=== PATIENT | male | born 1990 | race Caucasian/White ===

== ENCOUNTER 2018-10-06 05:23 | Emergency (ER) | payer OTHER ==
[2018-10-06 05:40] VITALS: BP 153/89; PULSE 60; RESP 18; TEMP 98.6
[2018-10-06] MEDS ORDERED: BUPIVACAINE (PF) 0.75% 30 ML VIAL SQ STA (06:07)
[2018-10-06] MEDS ORDERED: CLINDAMYCIN 150 MG CAP PO STA (06:07)
[2018-10-06] MEDS ORDERED: LIDOCAINE 1% INJ 10MG/ML (20 ML MDV) SQ ONE (06:07)
--- NOTE | 2018-10-06 06:30 | ED ---
ENT HPI - General Chief complaint: Dental/Oral Stated complaint: Dental pain Time Seen by Provider: 10/06/18 05:42 Source: patient Mode of arrival: ambulatory Limitations: no limitations - History of Present Illness Initial comments: [place] is a 28-year-old male presents the emergency department today with complaint of right-sided dental pain. Patient has a history of multiple dental caries and has had dental abscess in the past, he reports he's been in his usual state of health until he woke up this morning with right-sided dental pain worse in the upper teeth though he feels it radiates throughout the entire right side of his face. Patient denies any recent illness any recent nasal congestion or rhinorrhea. He does have a known broken tooth in this region which he reports he has seen a dentist for but was unable to have it extracted at that time. - Related Data Previous Rx's Medication Instructions Recorded Clindamycin [Cleocin] 450 mg PO Q6H 7 Days #28 capsule 10/06/18 Allergies Allergy/AdvReac Type Severity Reaction Status Date / Time Penicillins Allergy Rash/Hives Verified 10/06/18 05:40 amoxicillin AdvReac Unknown Verified 10/06/18 05:40 Childhood erythromycin base AdvReac Unknown Verified 10/06/18 05:40 Childhood Review of Systems ROS Statement: Those systems with pertinent positive or pertinent negative responses have been documented in the HPI. ROS Other: All systems not noted in ROS Statement are negative. Past Medical History Past Medical History: No Reported History History of Any Multi-Drug Resistant Organisms: None Reported Past Surgical History: No Surgical Hx Reported Past Psychological History: No Psychological Hx Reported Smoking Status: Current every day smoker Past Alcohol Use History: Rare Past Drug Use History: None Reported General Exam - General Exam Comments Initial Comments: Physical Exam GENERAL: Patient is well-developed and well-nourished. Patient is nontoxic and well- hydrated and is in no distress. HENT: Normocephalic, Atraumatic. TMs normal bilaterally Poor dentition with multiple dental caries and broken teeth, erythema of the gums in the peritonsillar space of the upper and lower molars EYES: PERRL, EOMI PULMONARY: Unlabored respirations. No audible rales rhonchi or wheezing was noted. CARDIOVASCULAR: There is a regular rate and rhythm without any murmurs gallops or rubs. ABDOMEN: Soft and nontender with normal bowel sounds. SKIN: Skin is clear with no lesions or rashes and otherwise unremarkable. : Deferred NEUROLOGIC: Patient is alert and oriented x3. Moving all extremities spontaneously MUSCULOSKELETAL: Normal extremities with adequate strength and full range of motion. No lower extremity swelling or edema. No calf tenderness. PSYCHIATRIC: Normal psychiatric evaluation. Limitations: no limitations Limitations: no limitations Course Vital Signs 10/06/18 05:37 Temperature 98.6 F Pulse Rate 60 Respiratory 18 Rate Blood Pressure 153/89 O2 Sat by Pulse 98 Oximetry Procedures - Nerve Block Consent Obtained: verbal consent Time Out Performed: Yes Local Anesthetic Used: Lidocaine 1% Side: right Nerve Blocks: other Intraoral Nerve Block: inferior alveolar Complications: none Patient Tolerated Procedure: well Medical Decision Making - Medical Decision Making Patient was seen and evaluated history is obtained from patient history and physical exam are consistent with dental infection Patient repeatedly asking for something to help with the discomfort from the dental infection, risks and benefits of a dental block were discussed with the patient, patient has received a dental block in the past and understands the risks of paralysis, neuropraxia and infection, would like to go forth with a dental block First dose clindamycin given in the emergency department Leser pallatine nerve block performed The patient reported resolution of his dental pain after block Patient was advised to contact dentist today and advised him of his dental infection and need for follow-up. Return parameters were discussed with patient questions pertaining to care were answered patient was discharged home in stable condition. Disposition Clinical Impression: Dental caries, Dental abscess, Toothache Disposition: HOME SELF-CARE Instructions: Dental Abscess (ED), Toothache (ED) Prescriptions: Clindamycin [Cleocin] 450 mg PO Q6H 7 Days #28 capsule Is patient prescribed a controlled substance at d/c from ED?: No Referrals: Cale Huang MD [Primary Care Provider] - 1-2 days Isauro Hampton DDS [STAFF PHYSICIAN] - 1-2 days Brandy Edward DDS [STAFF PHYSICIAN] - 1-2 days Virgie Mauro DDS [STAFF PHYSICIAN] - 1-2 days Time of Disposition: 06:31
== END 2018-10-06 06:34 | disposition home or self-care (01) ==
LOC: EC 05:23
DX: K02.9 Dental caries, unspecified (principal); K04.7 Periapical abscess without sinus; F17.200 Nicotine dependence, unspecified, uncomplicated; Z88.0 Allergy status to penicillin; Z88.1 Allergy status to other antibiotic agents
CPT/HCPCS: 99282; 64400; J2001

== ENCOUNTER 2019-11-05 13:23 | Emergency (ER) | payer OTHER ==
[2019-11-05 13:33] VITALS: BP 130/76; PULSE 94; RESP 18; TEMP 97.8
--- NOTE | 2019-11-05 13:57 | ED ---
Skin/Abscess/FB HPI - General Chief complaint: Skin/Abscess/Foreign Body Stated complaint: painful rash Time Seen by Provider: 11/05/19 13:39 Source: patient Mode of arrival: ambulatory Limitations: no limitations - History of Present Illness Initial comments: Patient is a 29-year-old male presenting to the emergency department with a chief complain of a skin rash. Patient states she noticed a small rash on the left side of his abdomen which started about 4 days ago and has gradually increased in severity. Patient reports initially it appeared to be a small abrasion and gradually developed vesicles and erythema but no drainage. Patient states initially was itchy but now it is painful. Patient states it follow the dermatomal pattern. Patient did have chickenpox as a child. Patient does report taking [id number] analgesics with some improvement in symptoms. - Related Data Previous Rx's Medication Instructions Recorded Clindamycin [Cleocin] 450 mg PO Q6H 7 Days #28 capsule 10/06/18 valACYclovir HCL [Valtrex] 1,000 mg PO Q8HR #30 tab 11/05/19 Allergies Allergy/AdvReac Type Severity Reaction Status Date / Time Penicillins Allergy Rash/Hives Verified 11/05/19 13:29 amoxicillin AdvReac Unknown Verified 11/05/19 13:29 Childhood erythromycin base AdvReac Unknown Verified 11/05/19 13:29 Childhood Review of Systems ROS Statement: Those systems with pertinent positive or pertinent negative responses have been documented in the HPI. ROS Other: All systems not noted in ROS Statement are negative. Past Medical History Past Medical History: No Reported History History of Any Multi-Drug Resistant Organisms: None Reported Past Surgical History: No Surgical Hx Reported Past Psychological History: No Psychological Hx Reported Smoking Status: Current every day smoker Past Alcohol Use History: Rare Past Drug Use History: Marijuana General Exam Limitations: no limitations General appearance: alert, in no apparent distress Head exam: Present: atraumatic, normocephalic, normal inspection Eye exam: Present: normal appearance Pupils: Present: normal accommodation ENT exam: Present: normal exam, mucous membranes moist Neck exam: Present: normal inspection, full ROM Respiratory exam: Present: normal lung sounds bilaterally Cardiovascular Exam: Present: regular rate, normal rhythm, normal heart sounds GI/Abdominal exam: Present: soft, normal bowel sounds, other (Vesicular rash on an erythematous base on the left side of the abdomen. No drainage noted.) Extremities exam: Present: normal inspection, full ROM Back exam: Present: normal inspection, full ROM Neurological exam: Present: alert, oriented X3 Psychiatric exam: Present: normal affect, normal mood Skin exam: Present: warm, dry, intact, normal color Course Vital Signs 11/05/19 13:30 Temperature 97.8 F Pulse Rate 94 Respiratory 18 Rate Blood Pressure 130/76 O2 Sat by Pulse 98 Oximetry Medical Decision Making - Medical Decision Making patient is a 29-year-old male presenting to emergency Department with a chief complaint of a skin rash. On exam patient does have a vesicular rash on an erythematous base on the left side of the abdomen follows a dermatomal pattern. Rash is painful. I suspect this is shingles. Patient advised that he is contagious until the vesicles beginning to form scales. Patient started on Valtrex. Patient is not immune compromise. Strict return parameters were thoroughly discussed with patient was understanding and agreeable. Case discussed with physician. Disposition Clinical Impression: Shingles Disposition: HOME SELF-CARE Condition: Stable Instructions (If sedation given, give patient instructions): Shingles (ED) Additional Instructions: Please follow up with primary care. Take prescribed medication as directed. Please return to emergency department if symptoms worsen. Prescriptions: valACYclovir HCL [Valtrex] 1,000 mg PO Q8HR #30 tab Is patient prescribed a controlled substance at d/c from ED?: No Referrals: None,Stated [Primary Care Provider] - 1-2 days Time of Disposition: 14:12
== END 2019-11-05 14:20 | disposition home or self-care (01) ==
LOC: EC 13:23
DX: B02.9 Zoster without complications (principal); F17.200 Nicotine dependence, unspecified, uncomplicated; Z88.0 Allergy status to penicillin; Z88.1 Allergy status to other antibiotic agents
CPT/HCPCS: 99282

== ENCOUNTER 2021-06-29 09:51 | Emergency (ER) | payer OTHER ==
[2021-06-29 10:06] VITALS: RESP 18; TEMP 98.2
[2021-06-29] MEDS ORDERED: KETOROLAC 15 MG/ML 1 ML VIAL IM STA (10:29)
[2021-06-29] MEDS ORDERED: DIAZEPAM 5 MG/ML 2 ML INJ IM STA (10:42)
--- NOTE | 2021-06-29 10:45 | XR ---
EXAMINATION TYPE: XR cervical spine comp DATE OF EXAM: 06/29/2021 TECHNIQUE: Frontal, lateral, oblique, swimmers, and open mouth view of the cervical spine are obtaine d. HISTORY: Cervical strain injury with pain COMPARISON: None FINDINGS: The cervical spine is visualized in its entirety from C1 thru the top of T1 level, it is s atisfactory in alignment without evidence of acute fracture or dislocation. The pre-vertebral soft t issue appears within normal limits. The C1-C2 articulation is within normal limits on the open mouth view. Vertebral body heights and disc space heights are maintained. The oblique images are within n ormal limits. Overlying clothing or blanket material is present IMPRESSION: No acute fracture or dislocation is seen in the cervical spine.
--- NOTE | 2021-06-29 10:48 | ED ---
General Adult HPI - General Chief complaint: Extremity Problem,Nontraumatic Stated complaint: neck/shoulder pain Time Seen by Provider: 06/29/21 10:07 Source: patient Mode of arrival: ambulatory Limitations: no limitations - History of Present Illness Initial comments: 31-year-old male presents to emergency Department with a chief complaint of right neck and shoulder pain. Patient reports he woke up this morning and began to experience symptoms. He reports most of the pain is located on the right side of his neck and is exacerbated with left and right rotation, lateral flexion. He reports the pain is going onto the trapezius into his right shoulder. States he has full range of motion shoulder but it hurts to move it. Reports it is quite tender to the touch. Denies any erythematous or ecchymotic changes or any trauma to the region. Denies taking medication to the symptoms. This report occasional paresthesias going to the right arm. - Related Data Previous Rx's Medication Instructions Recorded Clindamycin [Cleocin] 450 mg PO Q6H 7 Days #28 capsule 10/06/18 valACYclovir HCL [Valtrex] 1,000 mg PO Q8HR #30 tab 11/05/19 Cyclobenzaprine [Flexeril] 5 mg PO TID PRN #15 tablet 06/29/21 Allergies Allergy/AdvReac Type Severity Reaction Status Date / Time Penicillins Allergy Rash/Hives Verified 06/29/21 10:06 amoxicillin AdvReac Unknown Verified 06/29/21 10:06 Childhood erythromycin base AdvReac Unknown Verified 06/29/21 10:06 Childhood Review of Systems ROS Statement: Those systems with pertinent positive or pertinent negative responses have been documented in the HPI. ROS Other: All systems not noted in ROS Statement are negative. Past Medical History Past Medical History: No Reported History History of Any Multi-Drug Resistant Organisms: None Reported Past Surgical History: No Surgical Hx Reported Past Psychological History: No Psychological Hx Reported Smoking Status: Current every day smoker Past Alcohol Use History: Rare Past Drug Use History: Marijuana General Exam Limitations: no limitations General appearance: alert, in no apparent distress Head exam: Present: atraumatic, normocephalic, normal inspection Eye exam: Present: normal appearance, PERRL, EOMI Pupils: Present: normal accommodation ENT exam: Present: normal exam, normal oropharynx, mucous membranes moist Neck exam: Present: normal inspection, tenderness (Tenderness over the right paraspinal region of the cervical spine.). Absent: full ROM (Limited range of motion with left and right rotation. No crepitus.) Respiratory exam: Present: normal lung sounds bilaterally. Absent: respiratory distress, wheezes, rales, rhonchi, stridor, chest wall tenderness Cardiovascular Exam: Present: regular rate, normal rhythm, normal heart sounds. Absent: systolic murmur Extremities exam: Present: normal inspection, full ROM, tenderness (Tenderness over the right sided cervical spine and trapezius going to the shoulder.), norm al capillary refill, other (Palpable peripheral pulses in bilateral upper extremities.). Absent: pedal edema, joint swelling, calf tenderness Back exam: Present: normal inspection, full ROM Neurological exam: Present: alert, oriented X3 Psychiatric exam: Present: normal affect, normal mood Skin exam: Present: warm, dry, intact, normal color Course Vital Signs 06/29/21 06/29/21 06/29/21 10:03 11:06 11:23 Temperature 98.2 F 98.2 F Pulse Rate 68 65 65 Respiratory 18 18 18 Rate Blood Pressure 139/90 131/91 131/91 O2 Sat by Pulse 98 98 98 Oximetry Medical Decision Making - Medical Decision Making 31-year-old male presents to emergency Department with a chief complaint of right neck and shoulder pain. On Physical examination, tenderness over the right paraspinal region of the cervical spine along the trapezius as well. He does have some tenderness over the right deltoid. He has full range of motion in the right shoulder otherwise. Neurovascularly intact in the right upper extremity. Cervical spine x-ray shows no acute findings. Patient was given Toradol and Valium to prevent any spasms of the cervical muscles. On reevaluation, he reports improvement in symptoms. I advised him to alternate between Tylenol and Motrin. Return parameters were thoroughly discussed with patient who is understanding and agreeable Disposition Clinical Impression: Cervical strain, acute Disposition: HOME SELF-CARE Condition: Stable Instructions (If sedation given, give patient instructions): Cervical Strain (DC) Additional Instructions: Take prescribed medication as directed. Alternate between Tylenol and Motrin for pain control. Return to emergency department if symptoms worsen. Prescriptions: Cyclobenzaprine [Flexeril] 5 mg PO TID PRN #15 tablet PRN Reason: Muscle Spasm Is patient prescribed a controlled substance at d/c from ED?: No Referrals: Julien Fink MD [Primary Care Provider] - 1-2 days Time of Disposition: 10:48
[2021-06-29 11:20] VITALS: BP 131/91; PULSE 65
== END 2021-06-29 11:23 | disposition home or self-care (01) ==
LOC: EC 09:51
DX: S16.1XXA Strain of muscle, fascia and tendon at neck level, initial encounter (principal); F17.200 Nicotine dependence, unspecified, uncomplicated; F12.90 Cannabis use, unspecified, uncomplicated; Z88.0 Allergy status to penicillin; Z88.1 Allergy status to other antibiotic agents; X58.XXXA Exposure to other specified factors, initial encounter
CPT/HCPCS: 99283; 96372 ×2; 72050; J3360; J1885

== ENCOUNTER 2022-11-19 05:29 | Emergency (ER) | payer OTHER ==
[2022-11-19 05:33] VITALS: BP 148/99; PULSE 81; RESP 16; TEMP 97.9
[2022-11-19] MEDS ORDERED: KETOROLAC 15 MG/ML 1 ML VIAL IM STA (06:29)
--- NOTE | 2022-11-19 06:35 | ED ---
ENT HPI - General Chief complaint: Dental/Oral Stated complaint: infected tooth Time Seen by Provider: 11/19/22 06:02 Source: patient, RN notes reviewed, old records reviewed Mode of arrival: ambulatory Limitations: no limitations - History of Present Illness Initial comments: 32-year-old male presents with right upper dental pain since yesterday. Does have an appointment with a dentist to address dental caries of left upper next month. Denies any fevers. He is a daily smoker. MD complaint: tooth pain -: days(s) (1) Location: tooth # (2-3) Severity scale (1-10): 8 Quality: aching, constant Consistency: constant Improves with: none Context- Dental: history of dental caries, poor dental care Associated Symptoms: toothache - Related Data Previous Rx's Medication Instructions Recorded valACYclovir HCL [Valtrex] 1,000 mg PO Q8HR #30 tab 11/05/19 Cyclobenzaprine [Flexeril] 5 mg PO TID PRN #15 tablet 06/29/21 Clindamycin [Cleocin] 450 mg PO Q6H 7 Days #28 capsule 11/19/22 Allergies Allergy/AdvReac Type Severity Reaction Status Date / Time Penicillins Allergy Rash/Hives Verified 11/19/22 05:30 amoxicillin AdvReac Unknown Verified 11/19/22 05:30 Childhood erythromycin base AdvReac Unknown Verified 11/19/22 05:30 Childhood Review of Systems ROS Statement: Those systems with pertinent positive or pertinent negative responses have been documented in the HPI. ROS Other: All systems not noted in ROS Statement are negative. Past Medical History Past Medical History: No Reported History History of Any Multi-Drug Resistant Organisms: None Reported Past Surgical History: No Surgical Hx Reported Past Psychological History: No Psychological Hx Reported Smoking Status: Current every day smoker Past Alcohol Use History: Rare Past Drug Use History: Marijuana General Exam Limitations: no limitations General appearance: alert, in no apparent distress Head exam: Present: atraumatic Eye exam: Absent: periorbital swelling ENT exam: Present: mucous membranes moist Expanded Teeth exam: Present: dental caries, dental tenderness # (2-3, no drainable abscess) Throat exam: negative: tonsillar exudate, R peritonsillar mass, L peritonsillar mass Neck exam: Absent: tenderness, meningismus Respiratory exam: Absent: respiratory distress, accessory muscle use Cardiovascular Exam: Present: regular rate Neurological exam: Present: alert, oriented X3 Psychiatric exam: Present: normal affect, normal mood Skin exam: Present: warm, dry. Absent: cyanosis, diaphoretic Course Vital Signs 11/19/22 05:30 Temperature 97.9 F Pulse Rate 81 Respiratory 16 Rate Blood Pressure 148/99 O2 Sat by Pulse 97 Oximetry Medical Decision Making - Medical Decision Making No evidence of drainable abscess. Patient is ALLERGIC to penicillin, amoxicillin and erythromycin. Was treated in the past with Cleocin with improvement. Does have an appointment with the dentist next month. He was advised to call the dentist earlier to make appointment for his right upper in addition to his left upper dental caries. Patient is agreeable to this plan of care. Case discussed with Dr. Flores Was pt. sent in by a medical professional or institution? @ -no Did you speak to anyone other than the patient for history? @ -no Did you review nursing and triage notes? @ -yse i agree Were old charts reviewed? @ -previous ER visits for dental abscess and antibiotic treatment Differential Diagnosis? @ -Dental abscess, Luca's angina, dental fracture, Dental caries What testing was considered but not performed? (CT, X-rays, U/S, labs)? Why? @ none What meds were considered but not given? Why? @ -none Did you discuss the management of the patient with other professionals? @ -no Did you reconcile home meds? @ -no Was smoking cessation discussed for >3mins.? @ -yes Was critical care preformed (if so, how long)? @ -no Were there social determinants of health that impacted care today? How? (Homelessness, low income, unemployed, alcoholism, drug addiction, transportation, low edu. Level, literacy, decrease access to med. care, group home, rehab)? @ -none Was there de-escalation of care discussed even if they declined? (Discuss DNR or withdrawal of care, Hospice)? @ -no What co-morbidities impacted this encounter? (DM, HTN, Smoking, COPD, CAD, Cancer, CVA, Hep., AIDS, mental health diagnosis, sleep apnea, morbid obesity)? @ -smoking Was patient admitted / discharged? @ -discharged Undiagnosed new problem with uncertain prognosis? @ -no Drug Therapy requiring intensive monitoring for toxicity (Heparin, Nitro, Insulin, Cardizem)? @ -no Were any procedures done? @ -no Diagnosis/symptom? @ -dental abscess Acute, or Chronic, or Acute on Chronic? @ acute Uncomplicated (without systemic symptoms) or Complicated (systemic symptoms)? @ -[default] Side effects of treatment? @ -[none] Exacerbation, Progression, or Severe Exacerbation] @ -[no] Poses a threat to life or bodily function? @ -[no] Disposition Clinical Impression: Dental caries, Toothache, Gingivitis, Dental abscess Disposition: HOME SELF-CARE Condition: Good Instructions (If sedation given, give patient instructions): Dental Abscess (ED), Toothache (ED) Additional Instructions: Please call your dentist and advise him of the dental pain on the right upper in addition to the left upper. Take antibiotics as prescribed. Remember to brush and floss your teeth daily. Tylenol and Motrin as needed for pain. Prescriptions: Clindamycin [Cleocin] 450 mg PO Q6H 7 Days #28 capsule Is patient prescribed a controlled substance at d/c from ED?: No Referrals: None,Stated [Primary Care Provider] - 1-2 days Time of Disposition: 06:35
[2022-11-19] MEDS ORDERED: Acetaminophen-Codeine 300-30mg TAB PO STA (06:37)
[2022-11-19] MEDS ORDERED: ACET/COD 300 MG/30 MG STARTER PACK 6 TAB BTL PO STA (06:37)
== END 2022-11-19 06:52 | disposition home or self-care (01) ==
LOC: EC 05:29
DX: K02.9 Dental caries, unspecified (principal); K04.7 Periapical abscess without sinus; F12.90 Cannabis use, unspecified, uncomplicated; F17.200 Nicotine dependence, unspecified, uncomplicated; Z88.0 Allergy status to penicillin; Z88.8 Allergy status to other drugs, medicaments and biological substances
CPT/HCPCS: 99282; 96372; J1885

== ENCOUNTER 2023-01-19 12:38 | Emergency (ER) | payer OTHER ==
[2023-01-19] MEDS ORDERED: DEXAMETHASONE SOD PHOSPHATE 10 MG/ML 1 ML VIAL IM STA (13:38)
--- NOTE | 2023-01-19 14:10 | ED ---
ENT HPI - General Chief complaint: ENT Stated complaint: throat pain Time Seen by Provider: 01/19/23 12:48 Source: patient, RN notes reviewed Mode of arrival: ambulatory Limitations: no limitations - History of Present Illness Initial comments: This is a 32-year-old male who presents to the emergency department for a sore throat. Patient states that this started yesterday. He has some pain when swallowing and talking. States that he has a history of strep throat and believes that he has this again. Denies any fevers, coughing, or congestion. Denies any fevers, chills, cough, dyspnea, chest pain, palpitations, abdominal pain, nausea, vomiting, diarrhea, back pain, or headaches. MD complaint: sore throat Onset/Timin -: days(s) Location: throat - Related Data Previous Rx's Medication Instructions Recorded valACYclovir HCL [Valtrex] 1,000 mg PO Q8HR #30 tab 11/05/19 Cyclobenzaprine [Flexeril] 5 mg PO TID PRN #15 tablet 06/29/21 Clindamycin [Cleocin] 450 mg PO TID 7 Days #63 capsule 11/19/22 Clindamycin [Cleocin] 450 mg PO TID 7 Days #63 cap 01/19/23 Allergies Allergy/AdvReac Type Severity Reaction Status Date / Time Penicillins Allergy Rash/Hives Verified 01/19/23 12:47 amoxicillin AdvReac Unknown Verified 01/19/23 12:47 Childhood erythromycin base AdvReac Unknown Verified 01/19/23 12:47 Childhood Review of Systems ROS Statement: Those systems with pertinent positive or pertinent negative responses have been documented in the HPI. ROS Other: All systems not noted in ROS Statement are negative. Past Medical History Past Medical History: No Reported History History of Any Multi-Drug Resistant Organisms: None Reported Past Surgical History: No Surgical Hx Reported Past Psychological History: No Psychological Hx Reported Smoking Status: Current every day smoker Past Alcohol Use History: Rare Past Drug Use History: Marijuana General Exam Limitations: no limitations General appearance: alert, in no apparent distress Head exam: Present: atraumatic, normocephalic, normal inspection ENT exam: Present: other (Posterior pharyngeal erythema. 2+ tonsillar hypertrophy with exudates) Respiratory exam: Present: normal lung sounds bilaterally. Absent: respiratory distress, wheezes, rales, rhonchi, stridor Cardiovascular Exam: Present: regular rate, normal rhythm, normal heart sounds. Absent: systolic murmur, diastolic murmur, rubs, gallop, clicks Neurological exam: Present: alert, oriented X3, CN II-XII intact Psychiatric exam: Present: normal affect, normal mood Skin exam: Present: warm, dry, intact, normal color. Absent: rash Course Vital Signs 01/19/23 01/19/23 12:45 14:14 Temperature 98 F 97.9 F Pulse Rate 96 92 Respiratory 20 6 L Rate Blood Pressure 136/83 132/78 O2 Sat by Pulse 99 98 Oximetry Medical Decision Making - Medical Decision Making This is a 32-year-old male who presents to the emergency department for a sore throat. Was pt. sent in by a medical professional or institution? @ -No Did you speak to anyone other than the patient for history? @ -No Did you review nursing and triage notes? @ -Yes, and I agree, it is accurate with regards to the patient's symptoms. Were old charts reviewed? @ -No Differential Diagnosis? @ -Differential Sore Throat: Strep pharyngitis, herpes zoster, COVID, influenza, GERD, allergic rhinitis, mononucleosis, this is not meant to be an all-inclusive list. What testing was considered but not performed? (CT, X-rays, U/S, labs)? Why? @ -None What meds were considered but not given? Why? @ -None Did you discuss the management of the patient with other professionals? @ -No Did you reconcile home meds? @ -No Was smoking cessation discussed for >3mins.? @ -No Was critical care preformed (if so, how long)? @ -No Were there social determinants of health that impacted care today? How? (Homelessness, low income, unemployed, alcoholism, drug addiction, transportation, low edu. Level, literacy, decrease access to med. care, long-term, rehab)? @ -No Was there de-escalation of care discussed even if they declined? (Discuss DNR or withdrawal of care, Hospice)? @ -No What co-morbidities impacted this encounter? (DM, HTN, Smoking, COPD, CAD, Cancer, CVA, Hep., AIDS, mental health diagnosis, sleep apnea, morbid obesity)? @ -None Was patient admitted / discharged? @ -Discharged. Rapid strep test positive. Covid and influenza testing negati ve. He was given a dose of Decadron in the emergency department. Patient has a penicillin allergy and a prescription for clindamycin was provided with dosing instructions reviewed. Otherwise advised supportive care and alternating with ibuprofen and tylenol as needed for discomfort. Undiagnosed new problem with uncertain prognosis? @ -None Drug Therapy requiring intensive monitoring for toxicity (Heparin, Nitro, Insulin, Cardizem)? @ -None Were any procedures done? @ -None Diagnosis/symptom? @ -Strep throat Acute, or Chronic, or Acute on Chronic? @ -Acute Uncomplicated (without systemic symptoms) or Complicated (systemic symptoms)? @ -Uncomplicated Side effects of treatment? @ -None Exacerbation, Progression, or Severe Exacerbation] @ -Not applicable Poses a threat to life or bodily function? @ -No Return precautions reviewed in depth, the patient is instructed to return to the emergency department with any new, worsening, or concerning symptoms. Patient verbalized understanding. This case was discussed in detail with the attending ED physician, Dr. Hernandez. Presentation, findings, and treatment plan discussed in detail as well. - Lab Data Lab Results 01/19/23 01/19/23 01/19/23 Range/Units 13:05 13:05 13:05 Coronavirus (PCR) Not Detected (Not Detectd) Influenza Type A RNA Not Detected (Not Detectd) Influenza Type B (PCR) Not Detected (Not Detectd) Group A Strep (PCR) DETECTED A (Not Detectd) Disposition Clinical Impression: Strep pharyngitis Disposition: HOME SELF-CARE Instructions (If sedation given, give patient instructions): Pharyngitis (ED), Strep Throat (ED) Additional Instructions: Return to the emergency department with any new, worsening, or concerning symptoms. Take the antibiotic as prescribed for 7 days. Alternate with ibuprofen and Tylenol as needed for pain relief. Follow up with your primary care provider in 1-2 days. Prescriptions: Clindamycin [Cleocin] 450 mg PO TID 7 Days #63 cap Is patient prescribed a controlled substance at d/c from ED?: No Referrals: Julien Fink MD [Primary Care Provider] - 1-2 days
[2023-01-19 14:16] VITALS: BP 132/78; PULSE 92; RESP 6; TEMP 97.9
== END 2023-01-19 14:17 | disposition home or self-care (01) ==
LOC: EC 12:38
DX: J02.0 Streptococcal pharyngitis (principal); B95.0 Streptococcus, group A, as the cause of diseases classified elsewhere; F17.200 Nicotine dependence, unspecified, uncomplicated; F12.90 Cannabis use, unspecified, uncomplicated; Z88.0 Allergy status to penicillin; Z88.1 Allergy status to other antibiotic agents; Z88.8 Allergy status to other drugs, medicaments and biological substances; Z20.822 Contact with and (suspected) exposure to COVID-19
CPT/HCPCS: 99283; 87651; 87502; 87635; 96372; J1100